=== PATIENT | female | born 1995 | race Caucasian/White ===

== ENCOUNTER 2020-02-01 22:28 | Observation (INO) | payer BC ==
[~2020-02-01] VITALS: Ht 167.6 cm; Wt 87.4 kg
[2020-02-01] MEDS ORDERED: NS 1,000 ML IV ONE (23:00)
[2020-02-01 23:05] LABS: BASO % 0.2 % (0.0-1.0); EOS # 0.2 10^3/uL (0.0-0.5); EOS % 2.2 % (0.0-3.0); HEMATOCRIT 40.6 % (36.0-47.0); HEMOGLOBIN 13.5 g/dl (12.0-15.5); LYMPH # 1.7 10^3/uL (1.5-5.0); LYMPH % 19.6 % (24.0-44.0); MEAN CORPUSCULAR HEMOGLOBIN 30.6 pg (27.0-33.0); MEAN CORPUSCULAR HGB CONC 33.3 g/dl (32.0-36.5); MEAN CORPUSCULAR VOLUME 92.1 fl (80.0-96.0); MONO # 0.7 10^3/uL (0.0-0.8); MONO % 7.7 % (0.0-5.0); NEUTROPHILS # 6.1 10^3/uL (1.5-8.5); PLATELET COUNT, AUTOMATED 217 10^3/uL (150-450); RED BLOOD COUNT 4.41 10^6/uL (4.00-5.40); WHITE BLOOD COUNT 8.7 10^3/uL (4.0-10.0)
[2020-02-01 23:42] LABS: ALBUMIN 2.4 GM/DL (3.2-5.2); ALT/SGPT 15 U/L (12-78); BILIRUBIN,DIRECT < 0.1 MG/DL (0.0-0.2); BILIRUBIN,TOTAL 0.2 MG/DL (0.2-1.0); BLOOD UREA NITROGEN 8 MG/DL (7-18); CARBON DIOXIDE LEVEL 21 MEQ/L (21-32); CHLORIDE LEVEL 115 MEQ/L (98-107); CPK CREATINE PHOSPHOKINASE 33 U/L (26-192); ETHYL ALCOHOL (ETHANOL) 0.003 % (0.000-0.010); GLOMERULAR FILTRATION RATE > 60.0 (>60); GLUCOSE, FASTING 81 MG/DL (70-100); HCG, SERUM QUANTITATIVE 91810 MIU/ML; MAGNESIUM LEVEL 1.4 MG/DL (1.8-2.4); POTASSIUM SERUM 2.5 MEQ/L (3.5-5.1); SODIUM LEVEL 145 MEQ/L (136-145); TOTAL PROTEIN 4.8 GM/DL (6.4-8.2); URIC ACID 1.9 MG/DL (2.6-6.0)
--- NOTE | 2020-02-01 23:45 | REPVR ---
PROCEDURE INFORMATION: Exam: CT Head Without Contrast Exam date and time: 02/01/2020 10:41 PM Age: 24 years old Clinical indication: Other: Seizure; Additional info: Pre-eclampsia/eclampsia TECHNIQUE: Imaging protocol: Computed tomography of the head without contrast. Radiation optimization: All CT scans at this facility use at least one of these dose optimization techniques: automated exposure control; mA and/or kV adjustment per patient size (includes targeted exams where dose is matched to clinical indication); or iterative reconstruction. COMPARISON: No relevant prior studies available. FINDINGS: Brain: The white-devlin differentiation is preserved demonstrating no acute territorial type infarct. No acute intracranial hemorrhage is visualized. No intracranial mass effect. Midline shift: There is no midline shift. Ventricles: No ventriculomegaly. Bones/joints: The calvarium demonstrates no evidence for a depressed fracture. Sinuses: Mild mucosal thickening of scattered ethmoid air cells. Minimal mucosal thickening of the sphenoid sinuses. Mastoid air cells: No mastoid effusion. Soft tissues: Unremarkable. IMPRESSION: 1. No acute intracranial abnormality. 2. Paranasal sinus disease. 3. If further evaluation is clinically indicated, an MRI of the brain is recommended. Electronically signed by: Curt Colon On 02/01/2020 23:45:09 PM
[2020-02-02 01:28] LABS: AMORPHOUS SEDIMENT SMALL (NEGATIVE); APPEARANCE, URINE CLOUDY (CLEAR); BACTERIA, URINE AUTO 1+ (NEGATIVE); BILIRUBIN, URINE AUTO NEGATIVE (NEGATIVE); BLOOD, URINE BLOOD NEGATIVE (NEGATIVE); COLOR, URINE YELLOW (YELLOW); GLUCOSE, URINE (UA) AUTO NEGATIVE (NEGATIVE); KETONE, URINE AUTO NEGATIVE (NEGATIVE); LEUKOCYTE ESTERASE, URINE AUTO NEGATIVE (NEGATIVE); MUCUS, URINE SMALL (NEGATIVE); NITRITE, URINE AUTO NEGATIVE (NEGATIVE); PROTEIN, URINE AUTO NEGATIVE (NEGATIVE); RBC, URINE AUTO 1 /HPF (0-3); SPECIFIC GRAVITY URINE AUTO 1.017 (1.002-1.035); SQUAMOUS EPITHELIAL CELL UR AU 1 /HPF (0-6); WBC, URINE AUTO 3 /HPF (0-3)
[2020-02-02] MEDS ORDERED: MAG SULF 1GM/100ML (MAG RUN) 1 GM in IV 1 EA IV ONE (01:30)
[2020-02-02] MEDS ORDERED: POTASSIUM CHLORIDE 10 MEQ SR TABLET PO ONE (01:30)
[2020-02-02] MEDS ORDERED: MULTTAB20 PO (01:48)
[2020-02-02 01:49] LABS: AMPHETAMINES LEVEL URINE NEGATIVE (NEGATIVE); BARBITURATES URINE NEGATIVE (NEGATIVE); BENZODIAZEPINES URINE NEGATIVE (NEGATIVE); CANNABINOIDS URINE NEGATIVE (NEGATIVE); COCAINE METABOLITE URINE NEGATIVE (NEGATIVE); METHADONE URINE NEGATIVE (NEGATIVE); OPIATES URINE NEGATIVE (NEGATIVE); PHENCYCLIDINE URINE NEGATIVE (NEGATIVE)
[2020-02-02] MEDS ORDERED: ACETAMINOPHEN TAB 650MG DOSE (2X325MG) PO PRN (02:00)
[2020-02-02] MEDS ORDERED: ONDANSETRON 4MG/2ML VIAL (J2405) IV PRN (02:00)
[2020-02-02] MEDS ORDERED: NS 1,000 ML IV SCH (02:00)
[2020-02-02 03:00] VITALS: BP 126/81
[2020-02-02] MEDS ORDERED: POTASSIUM CHLORIDE 10% LIQ 20 MEQ/15 ML UDC PO ONE (03:00)
--- NOTE | 2020-02-02 03:20 | HPEPDOC ---
[facility] Medical History & Physical Date of Admission Feb 02, 2020 Date of Service: Feb 02, 2020 Attending Physician: WILLIAM CHENG MD History and Physical CHIEF COMPLAINT: "Seizure" HISTORY OF PRESENT ILLNESS: Patient is a 24 year old ~10 week female who presented to the [facility] ER with complaint of having a seizure. She states that for the past week or so she has had nausea and vomiting and has been unable to keep much of anything down. 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 Coopre of [facility]. She stated that she was started on Vitamin B6 but has not taken it. On 02/01/2020 she had developed a migraine headache which she typically gets almost daily. She took Tylenol which helped. She then noted redness in her eyes and went to Urgent care where she was given antibiotic drops. She subsequently went home and went to bed. She states that she does not remember much after. She was awoken at home where her boyfriend had told her she was having a seizure. She did admit to confusion however stated that she was aware of where she was. She stated that she felt groggy. She denied taking any illicit drugs. She denied any loss of bowel or bladder at the time. She denied any history of seizure disorder in her past. The patient then reported to the ER. In the ER the patients was noted to be confused. She was unable to recall her birthday but was otherwise awake, alert, and oriented. She was vitally stable. A CMP was obtained which demonstrated hypokalemia, hypomagnesemia and hypocalcemia. A CT of the head was obtained which demonstrated no acute intracranial abnormality. Hospitalist service was consulted for further evaluation and management PAST MEDICAL HISTORY: 1. Pulmonary Embolism in 2016- (unknown if provoked or unprovoked. S/P 6 months Xarelto) 2. History of PVCs/Palpitations PAST SURGICAL HISTORY: 1. Tonsillectomy SOCIAL HISTORY: Patient lives at home with her boyfriend/Father of baby. She denies any alcohol use during her . She drank alcohol occasionally outside of her . She denies any history of IV or illicit drug use. She denies any history of tobacco use. FAMILY HISTORY: Patients mother and father are alive and well. Patient grandmother has a history of DVT ALLERGIES: Please see below. REVIEW OF SYSTEMS: CONSTITUTIONAL: Denies fevers, chills, nightsweats, or unintentional weightloss HEENT: Denies sore throat. Denies difficulty swallowing. Admits to red eyes. Denies itchiness of her eyes. Denies pain or changes in her vision. Admits to chronic migraines with vision changes occasionally CARDIOVASCULAR: Denies chest pain. Admits to palpitations at times RESPIRATORY: Denies shortness of breath. Denies cough or sputum production GASTROINTESTINAL: Admits to chronic nausea and vomiting with the inability to tolerate PO. Denies diarrhea or constipation GENITOURINARY: Denies increased urgency or frequency SKIN: Denies any rashes or lesions MUSCULOSKELETAL: Denies any muscle weakness or pain NEUROLOGICAL: Denies any changes in her gait or speech. Admits to PSYCHIATRIC: Denies depression or anxiety ENDOCRINE: Denies heat intolerance or cold in tolerance HEMATOLOGIC/LYMPHATIC: Denies easy bruising or bleeding. Admits to history of Pulmonary Embolism. Denies history of DVT HOME MEDICATIONS: Please see below. PHYSICAL EXAMINATION: VITAL SIGNS: Temperature 99.1, pulse 87, respiratory rate 18, blood pressure 138/83 pulse oximetry 99% on room air. GENERAL APPEARANCE: Awake, alert, and oriented. Lying comfortably in stretcher. Does not appear in any acute distress HEENT: Atraumatic, normocephalic. Eyes are nonicteric. Trachea is midline. No JVD CARDIOVASCULAR: Normal S1, S2. Regular rate and rhythm. No clicks rubs or murmurs LUNGS: Clear vesicular breath sounds bilaterally. Good respiratory effort. No wheezes, rhonchi, or rales ABDOMEN: Soft, nondistended. Nontender. No rebound tenderness or guarding. Normoactive bowel sounds throughout EXTREMITIES: No edema. No calf tenderness. Full and equal pulses in bilateral upper and lower extremities NEUROLOGICAL: No focal neurological deficits. CN II-XII grossly intact PSYCHIATRIC: Slightly blunted affect LABORATORY DATA: See below. IMAGING: Exam: CT Head Without Contrast Exam date and time: 02/01/2020 10:41 PM Age: 24 years old Clinical indication: Other: Seizure; Additional info: Pre-eclampsia/eclampsia TECHNIQUE: Imaging protocol: Computed tomography of the head without contrast. Radiation optimization: All CT scans at this facility use at least one of these dose optimization techniques: automated exposure control; mA and/or kV adjustment per patient size (includes targeted exams where dose is matched to clinical indication); or iterative reconstruction. COMPARISON: No relevant prior studies available. FINDINGS: Brain: The white-devlin differentiation is preserved demonstrating no acute territorial type infarct. No acute intracranial hemorrhage is visualized. No intracranial mass effect. Midline shift: There is no midline shift. Ventricles: No ventriculomegaly. Bones/joints: The calvarium demonstrates no evidence for a depressed fracture. Sinuses: Mild mucosal thickening of scattered ethmoid air cells. Minimal mucosal thickening of the sphenoid sinuses. Mastoid air cells: No mastoid effusion. Soft tissues: Unremarkable. IMPRESSION: 1. No acute intracranial abnormality. 2. Paranasal sinus disease. 3. If further evaluation is clinically indicated, an MRI of the brain is recommended. Electronically signed by: Curt Allen On 02/01/2020 23:45:09 PM DD: CURT ALLEN MD 02/01/20 [id number] MICROBIOLOGY: Please see below. ASSESSMENT: Patient is a 24 year old 10 week female who presented to the [facility] ER with complaint of having a seizure. She was found to be hypokalemic and hypomagnesemic. . PLAN: 1. Seizure vs Pseudoseizure -Patient has no history of seizure in the past. Lactic acid on presentation was normal. She was found to have electrolyte disturbances. Patient had noted some stressful living situations at home. -Will place patient on seizure precautions. -Observation overnight -Consider Neurology consultation in AM for consideration of EEG inpatient vs outpatient 2. Hyperemesis Gravidarum -Patient is approximately 10 weeks . She has noted significant nausea and vomiting over the past week or so. On presentation to she was found to be hypokalemic and hypomagnesemic likely secondary to protracted vomiting/poor oral intake. -Will monitor and replenish electrolytes -Vitamin B6 for hyperemesis -Zofran as needed -IV fluids for now until able to tolerate PO -BRAT diet 3. Electrolyte Imbalance 2/2 Hyperemesis -Patient is hypokalemic with a postassium of 2.5. She was given 40 mEq of Potassium in the ER but was unable to swallow the pills due to size. Will replenish with Liquid Potassium 40mEq now followed by 40 mEq BID. -Patient was hypomagnesemic. She has received a Mag run in the ER. Will mon itor and replete PRN -Corrected calcium of 7.3. Mildly hypocalcemic. Will likely correct with flaco ection of Mg. Will monitor and replete PRN -Remote Telemetry 4. Bilateral Conjunctivitis -Patient has injected conjunctiva bilaterally. Denies any itching or gritty feeling. Admits to waking up in morning with discharge. -Likely viral over bacterial given bilateral and has improved over the past 48 hours. Will give Erythromycin Ointment while in hospital 5. -Patient is 10 weeks . [place] [address] appropriate for gestational age -Will continue vitamins 6. History of Pulmonary Embolism -Patient states she has a history of an unprovoked pulmonary embolism 4 years ago. She is s/p Xarelto for 6 months. She states that she was suppose to follow- up with hematology and pulmonary medicine but never did. 7. DVT Prophylaxis -TEDs and Sequentials ATTENDING PHYSICIAN ATTESTATION: I performed a history and physical exam of the patient and discussed management with the resident. I reviewed the resident's note and agree with the documented findings and plan of care as written above. Exceptions include the followin-year-old female who is currently 10 weeks presents with possible seizure. Currently doubt a true seizure and is most likely pseudoseizure given no elevated lactate and white count noted. Patient is currently undergoing stressful sleeping situations at home and work and will benefit from taking some time off. Electrolytes will need to be replaced given her hyperemesis gravidarum at this time. Once electrolytes are normal, patient can be discharged home. No need for neuro consult this time. Patient can follow neuro as outpatient. Rest of the plan as per above Vital Signs Vital Signs Date Time Temp Pulse Resp B/P (MAP) Pulse Ox O2 Delivery O2 Flow Rate FiO2 02/01/20 23:49 99 20 122/68 (86) 100 02/01/20 22:32 99.1 Laboratory Data Labs 24H Laboratory Tests 2 02/01/20 22:48: Urine Random Potassium 22.6 02/01/20 22:49: Immature Granulocyte % (Auto) 0.3, Neutrophils (%) (Auto) 70.0H, Lymphocytes (%) (Auto) 19.6L, Monocytes (%) (Auto) 7.7H, Eosinophils (%) (Auto) 2.2, Basophils (%) (Auto) 0.2, Neutrophils # (Auto) 6.1, Lymphocytes # (Auto) 1.7, Monocytes # (Auto) 0.7, Eosinophils # (Auto) 0.2, Basophils # (Auto) 0.0, Nucleated Red Blood Cells % (auto) 0.0, Urine Color YELLOW, Urine Appearance CLOUDYH, Urine pH 7.0, Urine Specific [place] 1.017, Urine Protein NEGATIVE, Urine Glucose (Auto)(UA) NEGATIVE, Urine Ketones (Auto) NEGATIVE, Urine Blood NEGATIVE, Urine Nitrite NEGATIVE, Urine Bilirubin NEGATIVE, Urine Urobilinogen 2.0H, Urine Leukocyte Esterase (Auto) NEGATIVE, Urine WBC (Auto) 3, Urine RBC (Auto) 1, Urine Hyaline Casts (Auto) 0, Urine Bacteria (Auto) 1+H, Urine Squamous Epithelial Cells 1, Urine Amorphous Sediment (Auto) SMALLH, Urine Mucus (Auto) SMALL, Urine Sperm (Auto) , Anion Gap 9, Glomerular Filtration Rate > 60.0, Lactic Acid Level 0.9, Uric Acid 1.9L, Calcium Level 6.0L, Magnesium Level 1.4L, Total Bilirubin 0.2, Direct Bilirubin < 0.1, Aspartate Amino Transf (AST/SGOT) 11, Alanine Aminotransferase (ALT/SGPT) 15, Alkaline Phosphatase 43L, Total Creatine Kinase 33, Total Protein 4.8L, Albumin 2.4L, Albumin/Globulin Ratio 1.00, Human Chorionic Gonadotropin, Quant 26634, Urine Opiates Screen NEGATIVE, Urine Methadone Screen NEGATIVE, Urine Barbiturates Screen NEGATIVE, Urine Phencyclidine Screen NEGATIVE, Urine Amphetamines Screen NEGATIVE, Urine Benzodiazepines Screen NEGATIVE, Urine Cocaine Metabolite Screen NEGATIVE, Urine Cannabinoids Screen NEGATIVE, Ethyl Alcohol Level 0.003 CBC/BMP Laboratory Tests 02/01/20 22:49 Microbiology Microbiology 02/01/20 Urine Culture, Received Pending Home Medications Scheduled No122/Iron/Folic Acid ( Multi Tablet) 1 Each Tablet, 1 TAB PO DAILY Allergies Coded Allergies: No Known Allergies (Verified Allergy, Unknown, 02/02/20) A-FIB/CHADSVASC A-FIB History Current/History of A-Fib/PAF?: No LOIS JC DO Feb 02, 2020 03:20 WILLIAM CHENG MD Feb 02, 2020 03:26
[2020-02-02] MEDS ORDERED: PYRIDOXINE 50 MG TAB PO SCH (06:00)
[2020-02-02 06:53] LABS: BLOOD UREA NITROGEN 7 MG/DL (7-18); CALCIUM LEVEL 8.3 MG/DL (8.5-10.1); CARBON DIOXIDE LEVEL 26 MEQ/L (21-32); CHLORIDE LEVEL 108 MEQ/L (98-107); CREATININE FOR GFR 0.48 MG/DL (0.55-1.30); GLOMERULAR FILTRATION RATE > 60.0 (>60); GLUCOSE, FASTING 80 MG/DL (70-100); MAGNESIUM LEVEL 2.3 MG/DL (1.8-2.4); PHOSPHORUS LEVEL 3.7 MG/DL (2.5-4.9); POTASSIUM SERUM 4.3 MEQ/L (3.5-5.1); SODIUM LEVEL 140 MEQ/L (136-145)
--- NOTE | 2020-02-02 08:33 | ECGEPIP ---
[facility] - ED Test Date: 2020-02-01 Pat Name: KALEN RAMIREZ Department: Room: [place] [address] Gender: Female [employer]ing Equipment Operator: : 1995 Requested By: LOIS Montenegro Order Number: [id number] Reading MD: Mandeep Glass Measurements Intervals [place] Rate: 106 P: 60 MD: 152 QRS: 53 QRSD: 93 T: 11 QT: 347 QTc: 463 Interpretive Statements SINUS TACHYCARDIA NSTTW ABNORMALITIES NO PRIORS FOR COMPARISON Electronically Signed on 02-02-2020 8:33:05 EDT by Mandeep Glass
[2020-02-02] MEDS ORDERED: POTASSIUM CHLORIDE 10% LIQ 20 MEQ/15 ML UDC PO SCH (09:00)
[2020-02-02] MEDS ORDERED: PRENATAL VITAMINS CHEWABLE TABLET PO SCH (09:00)
[2020-02-02] MEDS ORDERED: ERYTHROMYCIN OPHTH OINT OU SCH (09:00)
[2020-02-02 14:00] VITALS: BP 112/67
--- NOTE | 2020-02-02 14:45 | IPNPDOC ---
Subjective Date Seen The patient was seen on 02/02/20. Subjective Chief Complaint/HPI Laura is nauseous this morning, this is usual for her. She has only received 1 dose of zofran last night. Objective Physical Examination General Exam: Positive: Alert, Cooperative ENT Exam: Positive: Mucous membr. moist/pink Chest Exam: Positive: Clear to auscultation Heart Exam: Positive: Rate Normal Abdomen Exam: Positive: Normal bowel sounds Extremity Exam: Negative: Edema Skin Exam: Negative: Rash Psych Exam: Negative: Mental status NL, Mood NL Assessment /Plan Assessment # Hyperemesis Gravidum # Hypokalemia - resolved # Hypomagnesia - resolved plan: - discharge home and f/u with leveler helper if symptoms persist - B6 as previously prescribed - doubt need for neuro f/u as outpatient Plan/VTE VTE Prophylaxis Ordered?: Yes VTE Exclusion Mechanical Proph: N/A:VTE Prophy Ordered VS, I&O, 24H, Fishbone Vital Signs/I&O Vital Signs Date Time Temp Pulse Resp B/P (MAP) Pulse Ox O2 Delivery O2 Flow Rate FiO2 02/02/20 14:00 97.6 75 17 112/67 (82) 100 Room Air I&O- Last 24 Hours up to 6 AM 02/02/20 06:00 Intake Total 0 ml Balance 0 ml Laboratory Data 24H LABS Laboratory Tests 2 02/01/20 22:48: Urine Random Potassium 22.6 02/01/20 22:49: Immature Granulocyte % (Auto) 0.3, Neutrophils (%) (Auto) 70.0H, Lymphocytes (%) (Auto) 19.6L, Monocytes (%) (Auto) 7.7H, Eosinophils (%) (Auto) 2.2, Basophils (%) (Auto) 0.2, Neutrophils # (Auto) 6.1, Lymphocytes # (Auto) 1.7, Monocytes # (Auto) 0.7, Eosinophils # (Auto) 0.2, Basophils # (Auto) 0.0, Nucleated Red Blood Cells % (auto) 0.0, Urine Color YELLOW, Urine Appearance CLOUDYH, Urine pH 7.0, Urine Specific [place] 1.017, Urine Protein NEGATIVE, Urine Glucose (Auto)(UA) NEGATIVE, Urine Ketones (Auto) NEGATIVE, Urine Blood NEGATIVE, Urine Nitrite NEGATIVE, Urine Bilirubin NEGATIVE, Urine Urobilinogen 2.0H, Urine Leuko cyte Esterase (Auto) NEGATIVE, Urine WBC (Auto) 3, Urine RBC (Auto) 1, Urine Hyaline Casts (Auto) 0, Urine Bacteria (Auto) 1+H, Urine Squamous Epithelial Cells 1, Urine Amorphous Sediment (Auto) SMALLH, Urine Mucus (Auto) SMALL, Urine Sperm (Auto) , Anion Gap 9, Glomerular Filtration Rate > 60.0, Lactic Acid Level 0.9, Uric Acid 1.9L, Calcium Level 6.0L, Magnesium Level 1.4L, Total Bilirubin 0.2, Direct Bilirubin < 0.1, Aspartate Amino Transf (AST/SGOT) 11, Alanine Aminotransferase (ALT/SGPT) 15, Alkaline Phosphatase 43L, Total Creatine Kinase 33, Total Protein 4.8L, Albumin 2.4L, Albumin/Globulin Ratio 1.00, Human Chorionic Gonadotropin, Quant [id number], Urine Opiates Screen NEGATIVE, Urine Met hadone Screen NEGATIVE, Urine Barbiturates Screen NEGATIVE, Urine Phencyclidine Screen NEGATIVE, Urine Amphetamines Screen NEGATIVE, Urine Benzodiazepines Screen NEGATIVE, Urine Cocaine Metabolite Screen NEGATIVE, Urine Cannabinoids Screen NEGATIVE, Ethyl Alcohol Level 0.003 02/02/20 05:14: Anion Gap 6L, Glomerular Filtration Rate > 60.0, Calcium Level 8.3#L, Magnesium Level 2.3, Phosphorus Level 3.7 CBC/BMP Laboratory Tests 02/01/20 22:49 02/02/20 05:14 Microbiology Microbiology 02/01/20 Urine Culture, Received Pending SHANTEL FABIAN MD Feb 02, 2020 14:45
--- NOTE | 2020-02-02 21:12 | DSES ---
DATE OF ADMISSION: 02/01/2020 DATE OF DISCHARGE: 02/02/2020 DISCHARGE DIAGNOSES: 1. Hyperemesis gravidarum. 2. Hypokalemia. 3. Hypomagnesemia. 4. Possible pseudoseizure. PROCEDURES PERFORMED DURING HOSPITALIZATION: None. CONSULTANTS ON THE CASE: None. DISPOSITION: The patient is discharged home. CONDITION: Improved from admission. LABORATORIES PENDING AT THE TIME OF DISCHARGE: None. DISCHARGE INSTRUCTIONS: The patient is instructed to take her vitamin B6 for treatment of her nausea as prescribed by her employment legal assistant. She is to followup with her employment legal assistant's office in the next week should her symptoms persist to discuss further treatment options. RELEVANT LABORATORIES FOR THIS HOSPITALIZATION: White count 8.7, hemoglobin 13.5, hematocrit 40.6, platelet count 217,000. Sodium 140, potassium 4.3, chloride 108, bicarbonate 26, anion gap 6, BUN 7, creatinine 0.48, glucose 80, phosphorous 3.7, magnesium 2.3. On admission, her potassium was 2.5 with a magnesium of 1.4. Urine HCG was 91,810. Urine drug screen was negative. Alcohol level was less than 0.03. Urinalysis was otherwise unremarkable, not indicative of an infection. IMAGING STUDIES: CT scan of the head without contrast showed no acute intracranial abnormality. DISCHARGE MEDICATIONS: - vitamin - vitamin B6 as previously prescribed by her employment legal assistant HOSPITAL COURSE: Laura is a 24-year-old woman who is currently 10 weeks . She presented to the hospital after she was suspected of having a seizure while sleeping. On arrival to the emergency department, the patient was not noted to have a leukocytosis or elevated lactic acid suggestive of a [place] seizure. CT scan of the head was negative. She was found to be hypokalemic and hypomagnesemic. She was admitted to the hospitalist service on observation status. She was hydrated with intravenous fluids. Her electrolyte abnormalities were corrected, and she was subsequently discharged home in stable condition. During this hospital stay, I did touch base with her employment legal assistant, and advised her of Laura's hospitalization and plan at discharge. A total of 30 minutes was spent completing all discharge paperwork.
== END 2020-02-02 14:08 | disposition home or self-care (01) ==
LOC: EDBD 22:28 → M ED 22:28 → M ED INP 22:29 → ENRESERV 02-02 01:45 → M MSPAV 02-02 02:51
PROVIDERS: ADMIT Internal Medicine; ATTEND Internal Medicine
DX: O21.1 Hyperemesis gravidarum with metabolic disturbance (principal); O99.351 Diseases of the nervous system complicating pregnancy, first trimester; R25.8 Other abnormal involuntary movements; O99.89 Other specified diseases and conditions complicating pregnancy, childbirth and the puerperium; H10.33 Unspecified acute conjunctivitis, bilateral; Z86.711 Personal history of pulmonary embolism; Z79.899 Other long term (current) drug therapy; Z3A.10 10 weeks gestation of pregnancy
CPT/HCPCS: 36415; 70450; 80048; 80076; 80307; 82550; 83605; 83735; 84100; 84133; 84550; 84702; 85025; 87086; 93005; 93041; 94760; 96361; 96365; 96375; 99285; G0480; J2405; J3475

== ENCOUNTER 2021-06-16 18:59 | Emergency (ER) | payer BC, MEDICAID, OTHER ==
[~2021-06-16] VITALS: Ht 167.6 cm; Wt 98.6 kg
[~2021-06-16 18:59] MED LIST: MULTTAB20 PO
[2021-06-16 19:00] VITALS: BP 139/87
[2021-06-16] MEDS ORDERED: NORE0.353 PO (19:20)
[2021-06-16] MEDS ORDERED: LEXA1TAB PO (19:20)
[2021-06-16] MEDS ORDERED: NS 1,000 ML IV ONE (20:30)
[2021-06-16 20:58] LABS: BASO % 0.3 % (0.0-1.0); EOS # 0.1 10^3/uL (0.0-0.5); EOS % 1.7 % (0.0-3.0); HEMATOCRIT 38.1 % (36.0-47.0); HEMOGLOBIN 12.3 g/dl (12.0-15.5); LYMPH % 28.4 % (24.0-44.0); MEAN CORPUSCULAR HEMOGLOBIN 29.2 pg (27.0-33.0); MEAN CORPUSCULAR HGB CONC 32.3 g/dl (32.0-36.5); MEAN CORPUSCULAR VOLUME 90.5 fl (80.0-96.0); MONO # 0.6 10^3/uL (0.0-0.8); MONO % 8.2 % (2.0-8.0); NEUTROPHILS # 4.2 10^3/uL (1.5-8.5); NEUTROPHILS % 61.3 % (36.0-66.0); PLATELET COUNT, AUTOMATED 195 10^3/uL (150-450); RED BLOOD COUNT 4.21 10^6/uL (4.00-5.40); WHITE BLOOD COUNT 6.9 10^3/uL (4.0-10.0)
[2021-06-16 21:18] LABS: ALBUMIN 3.8 GM/DL (3.2-5.2); ALT/SGPT 18 U/L (12-78); BILIRUBIN,DIRECT 0.1 MG/DL (0.0-0.2); BILIRUBIN,TOTAL 0.3 MG/DL (0.2-1.0); BLOOD UREA NITROGEN 10 MG/DL (7-18); CALCIUM LEVEL 8.4 MG/DL (8.5-10.1); CARBON DIOXIDE LEVEL 27 MEQ/L (21-32); CHLORIDE LEVEL 107 MEQ/L (98-107); CREATININE FOR GFR 0.48 MG/DL (0.55-1.30); GLOMERULAR FILTRATION RATE > 60.0 (>60); GLUCOSE, FASTING 89 MG/DL (70-100); LIPASE 136 U/L (73-393); POTASSIUM SERUM 4.1 MEQ/L (3.5-5.1); SODIUM LEVEL 139 MEQ/L (136-145); TOTAL PROTEIN 6.9 GM/DL (6.4-8.2)
--- NOTE | 2021-06-16 23:11 | REPVR ---
PROCEDURE INFORMATION: Exam: US First Trimester, Transabdominal and US , Transvaginal Exam date and time: 06/16/2021 9:48 PM Age: 26 years old Clinical indication: complicated by abdominal or pelvic pain; Left lower quadrant; First trimester; Gestational age or lmp: 6 w 0 d; ; Additional info: L sided pelvic pain, positive home test TECHNIQUE: Imaging protocol: Real-time transabdominal obstetrical ultrasound of the maternal pelvis and a first trimester , less than 14 weeks 0 days, with image documentation. Transvaginal imaging was used for better evaluation of the fetus, adnexa, and/or cervix. COMPARISON: No relevant prior studies available. FINDINGS: Gestation: Intrauterine gestation. Embryonic/ heart rate: heart rate is detected, at 97 bpm. Extra-embryonic membranes/Placenta: Early IUP Amniotic fluid: Amniotic fluid is normal for gestational age. BIOMETRY: Gestational age (AUA): Mean gestational sac measurement is 16 mm, consistent with 6 weeks 3 days gestational age. [place]-rump length is 3.24 mm, consistent with 6 weeks 0 days gestational age. Estimated due date (AUA): Estimated date of delivery by ultrasound is 02/09/2022. MATERNAL: Uterus: The uterus is anteverted and measures 9.4 x 7.2 x 5.2 cm. Cervix: Unremarkable. Right adnexa: The right ovary measures 2.8 x 1.8 x 2.1 cm. Left adnexa: The left ovary measures 3.3 x 2.1 x 2.6 cm. There is a 2.0 cm anechoic left adnexal cyst or follicle. Intraperitoneal space: No free fluid in the cul-de-sac. Urinary bladder: Visualized portions of the bladder are unremarkable. IMPRESSION: 1. Single IUP at 6 weeks 0 days gestational age. 2. heart rate 97 bpm. Electronically signed by: Nadia Goodson On 06/16/2021 23:10:56 PM
[2021-06-16] MEDS ORDERED: RHOGAM 300 MCG (1500 IU) INJ (J2790) IM ONE (23:30)
[2021-06-17 00:01] LABS: HCG, SERUM QUANTITATIVE 26778 MIU/ML
== END 2021-06-17 00:46 | disposition home or self-care (01) ==
LOC: M ED 18:59
DX: O20.9 Hemorrhage in early pregnancy, unspecified (principal); O99.341 Other mental disorders complicating pregnancy, first trimester; F41.9 Anxiety disorder, unspecified; Z3A.01 Less than 8 weeks gestation of pregnancy; Z79.899 Other long term (current) drug therapy
CPT/HCPCS: 76801; 76817; 80048; 80076; 81001; 83690; 84702; 85025; 86850; 86900; 86901; 87086; 93976; 96360; 96361; 96372; 99283; J2790